=== PATIENT | male | born 1940 | race Caucasian/White ===

== ENCOUNTER 2016-09-08 20:32 | Emergency (ER) | payer MEDICARE ==
[~2016-09-08 20:32] MED LIST: ALLO300T2 PO; DIGO125T73 PO; FAMO20TA4 PO; FURO40TA4 PO; LACT1CAP75 PO; METO50TA3 PO; OXYC1TAB24; POTA10CA42 PO; VALA500T38 PO; [UNRECOGNIZED DRUG - OTHER] PO
[2016-09-08 20:38] VITALS: BP 168/96; PULSE 134; RESP 20; O2SAT 100
[2016-09-08] MEDS ORDERED: HYDROmorphone 1 mg/mL Inj ONE (20:46)
--- NOTE | 2016-09-08 20:47 | ED.REPORT ---
HPI-General Illness Date of Service Sep 08, 2016 ED Provider: jL Michaud MD Patient is a 76 year old male with a history of stage 4 colon cancer with mets to the liver, hypertension and CHF who presents to the ED complaining of severe lower abdominal pain. Associated symptoms include vomiting. Patient's last bowel movement was a few hours ago but that it was "minor". The patient reports that his pain has been getting progressively worse and his pain medications have not been helping. He was seen by Dr. Medley a few weeks ago, where it was recommended that the patient follow up with hospice but he is reluctant and has not follow up because his pain has "been controlled at home until today" Nursing Notes Stated Complaint: STAGE 4 CANCER,IN PAIN Chief Complaint: General Complaint Nursing Notes Reviewed: Yes Allergies: Coded Allergies: Penicillins (Verified Allergy, Severe, 09/08/16) Sulfa (Sulfonamide Antibiotics) (Verified Allergy, Severe, 09/08/16) acetaminophen (Verified Adverse Reaction, Unknown, avoid r/t liver CA, ) has taken in small amounts since Scheduled ([Joint Rx]) PO DAILY Allopurinol (Allopurinol) 300 Mg Tablet 300 MG PO DAILY Digoxin (Digoxin) 125 Mcg Tablet 125 MCG PO DAILY Furosemide (Furosemide) 40 Mg Tablet 40 MG PO DAILY Lactobacillus Combo No.10 (Probiotic) 1 Each Capsule 1 EACH PO DAILY Metoprolol Tartrate (Metoprolol Tartrate) 50 Mg Tablet 100 MG PO BID Potassium Chloride (Potassium Chloride) 10 Meq Capsule.er 5 MEQ PO DAILY TAKE WITH FOOD Valacyclovir (Valacyclovir) 500 Mg Tablet 500 MG PO BID Scheduled PRN Famotidine (Famotidine) 20 Mg Tablet 20 MG PO BID PRN PRN For Dyspepsia or Heartburn oxyCODONE-Acetaminophen 5-325 mg (oxyCODONE-Acetaminophen 5-325 mg) 1 Each Tablet PRN For Pain General Time Seen by MD: 20:47 Chief Complaint Abdominal pain Hx Obtained From: Patient Arrived By: Walk-in Sudden in Onset?: No Onset Occurred: 9 - 12 hours ago Location: : Abdomen Quality: Painful Radiation: : Does not radiate Severity: Current: Severe Recent Healthcare: No recent hospitalization, Recent doctor visit Similar Sx Previous: Yes Past Medical History Past Medical History Colon cancer metastasized to liver with some compromoised inguinal lymph nodes CHF Reports: Hypertension Reports: Atrial fibrillation Past Surgical History Colostomy colon resection Reports: Cholecystectomy Smoking History Never Smoker Social History Other Social History: Good social support Ambulatory Status Independent Review of Systems Full Review of Systems Constitutional: Denies: Chills, Fever Respiratory: Denies: Non-productive cough, Shortness of breath GI: Reports: Abdominal pain, Nausea, Vomiting, Denies: Constipation, Diarrhea Skin: Denies Itching, Denies Rash Complete sys rev & neg: except as marked. Physical Exam Vital Signs Vital Signs Date Time Temp Pulse Resp B/P Pulse Ox O2 Delivery O2 Flow Rate FiO2 09/08/16 23:15 149 16 115/93 92 Nasal Cannula 4 09/08/16 20:38 36.8 134 20 168/96 100 Room Air Initial VS: Reviewed General/Constitutional: Awake, Alert Distress / Hydration: Positive: Distress severe Head / Eyes: Atraumatic, Normocephalic, PERRL, EOMI Respiratory / Chest: Atraumatic, Breath sounds NL, Breath sounds = bilat, No respiratory distress Cardiovascular: Heart rate NL, Regular rhythm, Heart sounds NL ABDOMEN: abdomen tender to light touch distended Lower Extremity / Pelvis / MS: Atraumatic, No edema Skin: Atraumatic, Color NL, No rash, Warm, Dry Neurologic: Oriented X3, Speech NL, No motor deficits, No sensory deficits Psychiatric: Affect NL, Mood NL Interpretation & Diagnostics Lab Results Interpretation Result Diagram: 09/08/16204909/08/162049 Test 09/08/16 20:50 White Blood Count 14.6th/mm3 (3.8-10.1) Red Blood Count 3.76mil/mm3 (4.40-5.80) Hemoglobin 10.5g/dL (13.8-17.2) Hematocrit 32.9% (41.0-50.0) Mean Corpuscular Volume 87.5fL (81-100) Mean Corpuscular Hemoglobin 27.9pg (27.0-35.0) Mean Corpuscular Hemoglobin Concent 31.9% (32.0-37.0) Red Cell Distribution Width 14.8% (12.3-15.4) Platelet Count 501bil/L (150-400) Neutrophils (%) (Auto) 81.8% (40-74) Lymphocytes (%) (Auto) 8.2% (14-46) Monocytes (%) (Auto) 7.8% (4-12) Eosinophils (%) (Auto) 0.8% (0-5) Basophils (%) (Auto) 0.5% (0-3) Sodium Level 134mEq/L (134-144) Potassium Level 4.9mEq/L (3.5-5.2) Chloride Level 96mEq/L (97-108) Carbon Dioxide Level 19mmol/L (18-29) Blood Urea Nitrogen 20mg/dL (8-27) Creatinine 1.44mg/dL (0.76-1.27) Estimat Glomerular Filtration Rate 51mL/min (>59) Glucose Level 142mg/dL (60-99) Calcium Level 9.0mg/dL (8.5-10.1) Magnesium Level 1.9mg/dL (1.6-2.6) Total Bilirubin 0.6mg/dL (0.0-1.2) Aspartate Amino Transf (AST/SGOT) 27U/L (0-50) Alanine Aminotransferase (ALT/SGPT) 12U/L (0-44) Alkaline Phosphatase 141U/L (25-160) Total Protein 7.9g/dL (6.4-8.4) Albumin 3.2g/dL (3.4-5.0) Lipase 22U/L (13-60) Hold Edouard Top Tube Received (Received) X-Ray Abdominal Interpretation possible bowel obstruction, CT to further examine Interpretation / Wet Read by: Wet read ED physician Re-Eval/Medical Decision Med Decision/Clinical Course This gentleman would much rather not be in the hospital. I believe that he may have a bowel obstruction and therefore CT scanning is ordered. His pain is moderately to significantly controlled with significant doses of hydromorphone. Time of Eval: 22:46 Patient Status: Pain improved Re-Evaluation/Progress Note: Discussed X-ray and plan for CT. Patient understands and agrees to plan. Discharge & Departure Shift Change Sign-Out Patient Care Transferred: Yes Discussed Complaint(s): Yes Imaging Studies: Ordered, not yet done Primary Impression: Abdominal pain Abdominal location: lower abdomen, unspecified Qualified Code: R10.30 - Lower abdominal pain, unspecified Additional Impression: Afib Discharge Condition All VS Reviewed: Yes Condition: Stable Referrals: Sabina Grace MD (PCP) Alpesh Medley MD Care Transferred to: Dr. Hairston Care Transferred at: 00:08 Nisha Attestation Portions of this note were transcribed by Kia Butler. I, Dr. Michaud personally performed the history, physical exam and medical decision-making; I reviewed and confirmed the accuracy of the information in the transcribed note. Signed by: Nisha Coker, 09/08/16 copies to: Sabina Grace MD; Alpesh Medley MD, Kirk H MD Sep 08, 2016 20:47 Tamiko Butler Sep 08, 2016 20:57
[2016-09-08] MEDS: HYDROmorphone 1 mg/mL Inj IVPUSH PRN ×2 (20:51→21:23)
[2016-09-08] MEDS ORDERED: HYDROmorphone 1 mg/mL Inj IVPUSH ONE ×2 (20:55→21:20)
[2016-09-08] MEDS ORDERED: Ondansetron 2 mg/mL 2 mL Inj IVPUSH PRN (20:55)
[2016-09-08 21:16] LABS: BASOPHILS % (AUTO) 0.5 % (0-3); Mean Corpuscular Hemoglobin 27.9 pg (27.0-35.0)
[2016-09-08] MEDS ORDERED: Dextrose 5% 500 ML IV SCH (21:18)
[2016-09-08 21:20] LABS: EOSINOPHILS % (AUTO) 0.8 % (0-5); MONOCYTES % (AUTO) 7.8 % (4-12); Mean Corpuscular Volume 87.5 fL (81-100); NEUTROPHILS % (AUTO) 81.8 % (40-74); Platelet Count 501 bil/L (150-400)
[2016-09-08] MEDS ORDERED: HYDROmorphone PCA 0.2 mg/mL 30 mL Inj IV PRN (21:20)
[2016-09-08] MEDS ORDERED: HYDROmorphone 0.5 mg/0.5 mL iSecure Syringe IVPUSH PRN (21:20)
[2016-09-08] MEDS ORDERED: Dextrose 5% 250 ML IV SCH (21:24)
[2016-09-08 21:42] LABS: Magnesium 1.9 mg/dL (1.6-2.6)
[2016-09-08 23:15] VITALS: BP 115/93; PULSE 149; RESP 16; O2SAT 92
[2016-09-09 01:15] LABS: APPEARANCE,URINE HAZY (CLEAR,HAZY); COLOR,URINE DARK YELLOW (YELLOW); OCCULT BLOOD,URINE NEGATIVE (NEGATIVE); PH,URINE 5.5 (5.0-8.0); UROBILINOGEN,URINE NORMAL (NORMAL)
[2016-09-09] MEDS ORDERED: Digoxin 0.25 mg/mL 2 mL Inj IV ONE (02:15)
[2016-09-09] MEDS ORDERED: HepLOK Flush 100 unit/mL 5 mL Inj ONE (03:12)
[2016-09-09 03:23] VITALS: BP 110/91; PULSE 125; RESP 18; O2SAT 97
--- NOTE | 2016-09-09 06:59 | DRSVH ---
PROCEDURE: X-RAY ACUTE ABDOMINAL SERIES ([id number]) INDICATIONS: abdomen pain TECHNIQUE: One view chest and two views of the abdomen were acquired. COMPARISON: [facility], CT, CT KUB, 09/09/2016, 0:50. [facility], CR, ABD AC NE SERIES, 07/27/2011, 9:12. FINDINGS: Surgical changes and devices: Left chest port with the tip projecting in the mid SVC as before Chest: Lungs are clear. Heart size is normal. No pleural effusions. No pneumoperitoneum. Abdomen: Dilated small bowel loops with scattered air-fluid levels, with better evaluation on the CT dated same day. Please see report. A stent projects in the pelvis. Bones: No suspicious bony lesions. Lateral curvature of the spine and discogenic changes. IMPRESSION: Dilated small bowel loops with scattered air-fluid levels in keeping with small bowel obstruction. Pl ease see report from CT dated same day for further details Dictated by: Gonzalez Mandel M.D. on 09/09/2016 at 6:55 Approved by: Gonzalez Mandel M.D. on 09/09/2016 at 6:57
--- NOTE | 2016-09-09 08:01 | DRSVH ---
PROCEDURE: CT KUB ([id number]) INDICATIONS: bowel obstruction. History of colon cancer TECHNIQUE: Noncontrast 5 mm thick sections acquired from the diaphragms to the symphysis. 5 mm thick coronal an d sagittal reformats were then performed. For radiation dose reduction, the following was used: aut omated exposure control, adjustment of mA and/or kV according to patient size. COMPARISON: [facility], CT, CT CHEST ABD PELVIS W CON, 04/11/2016, 11:13. FINDINGS: Image quality: Excellent. Lung bases: Scattered atelectasis and scarring in the visualized lung bases. There is a 5 mm nodule s een in the right middle lobe image 5 series 3 which appears new. Heart is enlarged and there are kosta nary artery calcifications. Urinary system: There is interval development of moderate to severe right hydronephrosis, and dilatat ion of the right ureter to level of the sigmoid colon mass. No urolithiasis identified. Left kidney u nremarkable. Other solid organs: Large heterogeneous hepatic mass measuring 8.0 cm, which is increased in size si nce 04/11/16 (5.6 cm) in keeping with hepatic metastasis. Remaining unenhanced liver grossly unremarka ble. Gallbladder surgically absent. Spleen unremarkable. The biliary ductal dilatation. The pancreas is grossly unremarkable. Adrenal glands within normal limits. Peritoneum and bowel: No free air seen. There are multiple dilated small bowel loops, with scattered air-fluid levels although no definite transition point is seen. There is sigmoid colon circumferentia l wall thickening, surrounding a sigmoid colon stent. This has progressed since the prior study altho ugh exact measurements are difficult due to irregular configuration. There is enlargement of a right mesorectal lymph node on image 89 series 2 now measuring 1 cm, previously 5 mm. Normal appendix. Nodes and vessels: No retroperitoneal or mesenteric adenopathy by size criteria. Aorta and inferior vena cava are normal in caliber. Abdominal wall: Multiple ventral hernias are present containing bowel loops. Pelvis: No free pelvic fluid. No inguinal hernias or adenopathy. Bones: No suspicious bony lesions. No vertebral body compression fractures. IMPRESSION: Interval development of moderately severe right hydronephrosis and hydroureter presumably related to progression of sigmoid colon mass since the prior study dated 04/11/16. Interval tumor progression in hepatic metastasis, right mesorectal lymph node and sigmoid colon mass (status post stent placement) since the prior study as outlined above. Dilated small bowel with scattered air-fluid levels. This likely represents a bowel obstruction howev er technically acute enteritis or adynamic ileus is in the differential. No specific transition point identified. 5 mm new right middle lobe pulmonary nodule raising possibility of early pulmonary metastasis. Recomm end close attention on followup scans. Multiple ventral bowel containing hernias. Dictated by: Gonzalez Mandel M.D. on 09/09/2016 at 7:46 Approved by: Gonzalez Mandel M.D. on 09/09/2016 at 7:59
== END 2016-09-09 03:29 ==
LOC: SED 20:32
DX: K56.60 Unspecified intestinal obstruction (principal); C18.9 Malignant neoplasm of colon, unspecified; C78.7 Secondary malignant neoplasm of liver and intrahepatic bile duct; I11.0 Hypertensive heart disease with heart failure; I50.9 Heart failure, unspecified; Z88.0 Allergy status to penicillin; Z88.2 Allergy status to sulfonamides; Z88.6 Allergy status to analgesic agent
CPT/HCPCS: 36415; 74022; 74176; 80053; 80162; 81000; 83690; 83735; 85025; 96374; 96375; 96376; 99285; J1160; J1170; J2405